=== PATIENT | female | born 1960 | race Caucasian/White ===

== ENCOUNTER 2020-07-05 09:39 | Emergency (ER) | payer MEDICAID ==
[~2020-07-05] VITALS: Ht 182.9 cm; Wt 76.4 kg
[2020-07-05] MEDS ORDERED: dexamethasone sod phosphate 10mg/ml inj IV STA (10:08)
[2020-07-05] MEDS ORDERED: azithromycin/NS 500mg/250ml 250 ML IV ONE (10:10)
[2020-07-05] MEDS ORDERED: CefTRIAXone 2gm/D5W 50ml 50 ML IV ONE (10:10)
[2020-07-05] MEDS ORDERED: normal saline 1000ML IV soln IV ONE (10:10)
[2020-07-05 10:51] LABS: BASOPHILS % (AUTO) 0.3 % (0-1); EOSINOPHILS # (AUTO) 0.2 X10'3 (0-0.9); HEMATOCRIT 38.2 % (35.0-45.0); HEMOGLOBIN 12.8 g/dl (12.0-16.0); LYMPHOCYTES # (AUTO) 2.2 X10'3 (1.1-4.8); LYMPHOCYTES % (AUTO) 27.5 % (21-51); MEAN CORPUSCULAR HEMOGLOBIN 29.8 PG (27.0-31.0); MEAN CORPUSCULAR HGB CONC 33.6 g/dL (33.0-36.5); MEAN CORPUSCULAR VOLUME 88.7 FL (78-98); MEAN PLATELET VOLUME 7.3 FL (7.4-10.4); MONOCYTES # (AUTO) 0.8 X10'3 (0-0.9); MONOCYTES % (AUTO) 10.3 % (2-12); NEUTROPHILS # (AUTO) 4.8 X10'3 (1.8-7.7); NEUTROPHILS % (AUTO) 59.9 % (42-75); PLATELET COUNT 309 X10'3 (140-440); RED CELL DISTRIBUTION WIDTH 12.6 % (11.5-14.5)
[2020-07-05 11:05] LABS: D-DIMER 0.55 MG/L FEU (0-0.50)
[2020-07-05 11:25] LABS: ALANINE AMINOTRANSFERASE 23 U/L (12-78); ALBUMIN 3.8 G/DL (3.4-5.0); ALKALINE PHOSPHATASE 92 IU/L (46-116); ANION GAP 11 (8-16); ASPARTATE AMINO TRANSFERASE 15 U/L (10-37); BILIRUBIN,TOTAL 0.6 MG/DL (0.1-1.0); BLOOD UREA NITROGEN 12 MG/DL (7-18); BUN/CREATININE RATIO 21.1 (6.6-38.0); CHLORIDE 103 MMOL/L (99-107); CREATININE 0.57 MG/DL (0.40-0.90); GLUCOSE 103 MG/DL (70-104); POTASSIUM 3.8 MMOL/L (3.5-5.1); SODIUM 141 MMOL/L (135-145); TOTAL CARBON DIOXIDE 26.9 MMOL/L (24-32); TOTAL PROTEIN 7.6 G/DL (6.4-8.2); eGFR > 90 ML/MIN
[2020-07-05] MEDS ORDERED: iohexol 350MG/ML 100ml bottle IV ONE (11:54)
[2020-07-05] MEDS ORDERED: ALBU6.7H9 INH (15:03)
[2020-07-05] MEDS ORDERED: LEVO750T46 PO (15:03)
[2020-07-05] MEDS ORDERED: DEXA4TAB67 PO (15:03)
[2020-07-05 15:25] VITALS: BP 139/75
== END 2020-07-05 15:28 | disposition home or self-care (01) ==
LOC: ER 09:40
DX: U07.1 COVID-19 (principal); J18.9 Pneumonia, unspecified organism; E11.9 Type 2 diabetes mellitus without complications; Z98.890 Other specified postprocedural states; Z72.89 Other problems related to lifestyle; Z88.2 Allergy status to sulfonamides; Z88.1 Allergy status to other antibiotic agents; Z79.899 Other long term (current) drug therapy
CPT/HCPCS: 36415; 71045; 71275; 80053; 83605; 83880; 84145; 84484; 85025; 85379; 87040; 93005; 96365; 96375; 99285; J0456; J0696; J1100; J7030; Q9967

== ENCOUNTER 2025-07-03 08:38 | Emergency (ER) | payer MEDICAID ==
[~2025-07-03] VITALS: Ht 182.9 cm; Wt 77.0 kg
[~2025-07-03 08:38] MED LIST: ALBU6.7H14 INH; DEXA4TAB67 PO
[2025-07-03 08:40] VITALS: BP 138/75; PULSE 94; RESP 16; O2SAT 98
--- NOTE | 2025-07-03 09:11 | Physician Documentation ---
History of Present Illness ~ Chief Complaint: Leg Pain Stated Complaint: LEG PAIN Time Seen by MD: 09:05 Source: patient Mode of Arrival: POV Exam Limitations: no limitations HPI 65-year-old female with complaints right knee and calf pain. Patient did have fairly recent and long travel to [facility]. Patient flew to [facility] in March and returned June 09, 2025. Patient denies any clotting disorders, smoking, HRT, shortness of breath or chest pain. Patient states it initially started with tenderness to the calf muscle and then went up to behind her knee which she states she has had some knee problems and has injured her knee in the past but concerned due to the travel for potential DVT. Patient went to urgent care who advised her to come to the emergency department. Tetanus witin 5 years: No (unsure) Medication Reconciliation Allergies: Coded Allergies: Sulfa (Sulfonamide Antibiotics) (Verified Allergy, Unknown, 07/03/25) amoxicillin (Verified Allergy, Unknown, 07/03/25) clavulanic acid (Verified Allergy, Unknown, 07/03/25) Scheduled Albuterol Sulfate (Proventil Hfa), 2 PUFFS INH Q6H Dexamethasone (Decadron), 1 TAB PO Q12H Past Medical History Past Medical History: No Pertinent History, Diabetes Past Surgical History: noncontributory, orthopedic surgeries Smoking Status: Never smoker Alcohol Use: Rarely Drug Use: none Lives In: Home Occupation: retired Review of Systems All Other Systems at this time: Reviewed and Negative Musculoskeletal: Reports: see HPI Physical Exam Vital Signs: RN Vital Signs have been reviewed: Yes, Temperature: 98.1, Heart Rate: 94, Respiratory Rate: 16, BP: 138/75, Pulse Oximetry: 98, Weight: 77.000 Oxygen Flow Rate: 0 Physical Exam General: Alert, no apparent distress. HEENT: PERRL, EOMI, no injection, moist mucous membranes. Neck: Full range of motion. Respiratory: Lungs clear, no respiratory distress. Chest: No accessory muscle use. Cardiovascular: Regular rate and rhythm, no murmurs. Extremities: Normal range of motion, no deformity. No right lower extremity calf tenderness no asymmetry or swelling popliteal fossa tenderness without appreciation of Salguero's cyst no erythema Neurologic: Oriented x4. Psychiatric: Normal mood and affect. Skin: Normal color, warm and dry. No edema, no ecchymosis. Progress Results/Orders Results/Orders Orders - RA,MODESTA K DIRECTOR TELEMETRY Vl Venous (07/03/25 09:19) Completed Orders - MODESTA NAQVI NP Vl Venous (07/03/25 09:19) Vital Signs 07/03/25 08:40 Temp 98.1 Pulse 94 Resp 16 B/P (MAP) 138/75 Pulse Ox 98 O2 Flow Rate 0 Medical Decision Making Findings Due to travel ultrasound will be ordered to rule out DVT as a differential. This could be arthritis, Salguero's cyst no obvious injuries noted by patient. DVT ultrasound was negative without injury to the knee no x-ray was done for patient to follow up with urgent care primary care no Salguero's cyst noted. Knee Diff Dx:Considerations: Include: Arthritis, DJD, Sprain Departure Time of Disposition: 09:51 Disposition: HOME / SELF CARE / HOMELESS Impression: Primary Impression: Lower extremity sprain Additional Impression: Knee pain, acute Condition: Stable Discharge Instructions: RICE Therapy for Routine Care of Injuries, [id number] Additional Instructions: Your ultrasound was negative for DVT as well as the Salguero's cyst. This could be from caring your luggage or your baggage as you described. Continue with rest and compression and follow up with primary care Referrals: NO PRIMARY CARE PROVIDER (PCP) Prescriptions Naproxen (Naproxen) 500 Mg Tablet 1 TAB PO Q12H PRN for pain, #20 TAB Prov: MODESTA NAQVI NP 07/03/25 Education Educated: Patient Educated regarding: diagnosis, treatment, need for follow up Signature Scribe Signature: No scribe Attestation: The note accurately reflects work and decisions made by me.Modesta Naqvi - DIRECTOR VOLUNTEER SERVICES 07/03/25 09:14 MODESTA NAQVI NP Jul 03, 2025 09:11
[2025-07-03] MEDS ORDERED: NAPR-56 PO (09:53)
--- NOTE | 2025-07-03 10:03 | VASCULAR REPORT ---
Right lower extremity venous duplex Clinical History: pain Comparison: None Technique: Duplex Doppler evaluation of the deep venous system of the right lower extremity from the common femoral vein to the popliteal vein including color Doppler and spectral/pulsed waveform analysis was performed. Findings: The common femoral vein demonstrates appropriate compressibility and waveform variability. There is compressibility/patency of the great saphenous vein at the proximal thigh. The femoral vein demonstrates appropriate compressibility and waveform variability. The deep femoral vein demonstrates appropriate compressibility and waveform variability. The popliteal vein demonstrates appropriate compressibility and waveform variability. There is normal compressibility at the tibioperoneal trunk. Impression: No right femoropopliteal venous thrombosis. Contralateral common femoral vein is patent.
[2025-07-03 10:15] VITALS: TEMP 98.1
== END 2025-07-03 10:19 | disposition home or self-care (01) ==
LOC: ER 08:38
DX: S83.91XA Sprain of unspecified site of right knee, initial encounter (principal); Z88.0 Allergy status to penicillin; Z88.2 Allergy status to sulfonamides; X58.XXXA Exposure to other specified factors, initial encounter; Y93.89 Activity, other specified; Y92.89 Other specified places as the place of occurrence of the external cause; Y99.8 Other external cause status
CPT/HCPCS: 93971; 99284